=== PATIENT | male | born 1975 ===

== ENCOUNTER 2020-12-23 18:33 | Emergency (ER) | payer OTHER ==
--- NOTE | 2020-12-23 18:59 | EDM.PDOC ---
ED HPI GENERAL MEDICAL PROBLEM - General Chief Complaint: Skin Complaint Stated Complaint: LEFT THUMB INJURY Time Seen by Provider: 12/23/20 18:35 - History of Present Illness INITIAL COMMENTS - FREE TEXT/NARRATIVE: History of present illness: [] Patient has a hangnail or ingrown nail on the thumb of the left hand for 2 to 3 days and today it swollen red and painful. He asked for antibiotics but actually has a paronychia and I told him would be better to if he had one of the other to have drainage. Review of systems: As per history of present illness and below otherwise all systems reviewed and negative. Past medical history: As per history of present illness and as reviewed below otherwise noncontributory. Surgical history: As per history of present illness and as reviewed below otherwise noncontributory. Social history: No reported history of drug or alcohol abuse. Family history: As per history of present illness and as reviewed below otherwise noncontributory. Physical exam: Constitutional - well developed, well-nourished and in no acute distress HEENT - normocephalic, no evidence of trauma - external nose and mouth normal - no mass in neck and no JVD - mucosae moist EYES - full EOM, PERRL, no icterus - no evidence of inflammation, injection, or drainage Respiratory - no respiratory distress, equal bilateral expansion Musculoskeletal swelling and tenderness of the distal segment of the thumb on the dorsal side only. No gross deformity of long bones or joints - no tenderness, swelling or edema Neurologic - Alert and oriented times four - CN II-XII grossly intact - motor sensory and coordination symmetrically normal Psychiatric - appropriate mood and affect with normal thought content Hematologic - No petechiae or purpura - mucosa appropriate color and sclera not pale - normal nail bed color and refill Integument -paronychia left thumb no rash or evidence of trauma - normal turgor Diagnostics: [] Therapeutics: [] Impression: [] Plan: [] Definitive disposition and diagnosis as appropriate pending reevaluation and review of above. Left thumb Pain Score (Numeric/FACES): 6 - Related Data Allergies Allergy/AdvReac Type Severity Reaction Status Date / Time No Known Allergies Allergy Verified 12/23/20 18:44 Home Meds: Home Meds Acetaminophen/oxyCODONE [Percocet 325-5 MG] 1 - 2 tab PO Q4HR PRN #14 tab 07/15/21 [Rx] cephALEXin [Cephalexin] 500 mg PO BID #10 capsule 12/23/20 [Rx] Past Medical History - Past Health History Medical/Surgical History: Denies Medical/Surgical History - Infectious Disease History Infectious Disease History: Reports: None Social & Family History - Family History Family Medical History: No Pertinent Family History - Tobacco Use Tobacco Use Status *Q: Never Tobacco User - Recreational Drug Use Recreational Drug Use: No ED ROS GENERAL - Review of Systems Review Of Systems: Comprehensive ROS is negative, except as noted in HPI. ED EXAM, SKIN/RASH Exam: See Below Text/Narrative:: My physical exam is in the HPI ED SKIN PROCEDURES - I&D Site: Left thumb Skin Prep: Providone-Iodine (Betadine) Local Anesthesia: Lidocaine: 1% Plain Local Anesthetic Volume: 5cc (Digital block done after Betadine prep) Area Incised With: Scissors Drainage: Purulent Probed to Break Up Loculations: Yes Packed With: 1/4 in. Iodoform Progress/Comments: Paronychia broken up after eponychium elevated over nail on purulent material exchange iodoform packing placed over the nail to the nail base . Course - Vital Signs Last Recorded V/S: Last Vital Signs Temp 35.9 C L 12/23/20 18:44 Pulse 76 12/23/20 18:44 Resp 17 12/23/20 18:44 BP 124/102 H 12/23/20 18:44 Pulse Ox 98 12/23/20 18:44 Departure - Departure Time of Disposition: 19:10 Disposition: Home, Self-Care 01 Condition: Good Clinical Impression: Paronychia - Discharge Information Instructions: Paronychia Referrals: Anil Pinzon MD [Primary Care Provider] - Additional Instructions: [facility] [address] [place] [address] [id number] [address] [address] The following information is given to patients seen in the emergency department who are being discharged to home. This information is to outline your options for follow-up care. We provide all patients seen in our emergency department with a follow-up referral. The need for follow-up, as well as the timing and circumstances, are variable depending upon the specifics of your emergency department visit. If you don't have a primary care physician on staff, we will provide you with a referral. We always advise you to contact your personal physician following an emergency department visit to inform them of the circumstance of the visit and for follow-up with them and/or the need for any referrals to a consulting specialist. The emergency department will also refer you to a specialist when appropriate. This referral assures that you have the opportunity for follow-up care with a specialist. All of these measure are taken in an effort to provide you with optimal care, which includes your follow-up. Under all circumstances we always encourage you to contact your private physician who remains a resource for coordinating your care. When calling for follow-up care, please make the office aware that this follow-up is from your recent emergency room visit. If for any reason you are refused follow-up, please contact the [facility] Emergency Department at and asked to speak to the emergency department charge nurse. Pull the packing out in 2 days and start hot soaks and keep the cuticle elevated over the nail with manicure stick. Sepsis Event Note (ED) - Evaluation Sepsis Screening Result: No Definite Risk - Focused Exam Vital Signs: Vital Signs Temp Pulse Resp BP Pulse Ox 12/23/20 18:44 35.9 C L 76 17 124/102 H 98
== END 2020-12-23 19:07 | disposition home or self-care (01) ==
LOC: MW.ED 18:33
DX: L03.012 Cellulitis of left finger (principal)
CPT/HCPCS: 64450; 99283-25

== ENCOUNTER 2021-03-04 19:21 | Emergency (ER) | payer OTHER ==
[2021-03-04] MEDS ORDERED: Lidocaine 5% 700 MG Patch TOP ONE (19:29)
[2021-03-04] MEDS ORDERED: Ketorolac 30 MG/ML SDV IM ONE (19:29)
--- NOTE | 2021-03-04 19:32 | EDM.PDOC ---
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 States he had pain this morning past in his back. Patient is able to ambulate denies any urinary incontinence no saddle anesthesia. Pain is localized to his left lower back. Does not radiate he made worse with lifting his leg. Few minutes ago has not any medication for this. Onset: Today Duration: Hour(s): Location: Reports: Back Quality: Reports: Ache Severity: Moderate Improves with: Reports: None Worsens with: Reports: Movement Associated Symptoms: Reports: No Other Symptoms left side of back Pain Score (Numeric/FACES): 8 - Related Data Allergies Allergy/AdvReac Type Severity Reaction Status Date / Time No Known Allergies Allergy Verified 03/04/21 19:28 Home Meds: Home Meds . [No Known Home Meds] 03/04/21 [History] Past Medical History - Past Health History Medical/Surgical History: Denies Medical/Surgical History - Infectious Disease History Infectious Disease History: Reports: None Social & Family History - Family History Family Medical History: No Pertinent Family History ED ROS GENERAL - Review of Systems Review Of Systems: See Below Constitutional: Reports: No Symptoms HEENT: Reports: No Symptoms Respiratory: Reports: No Symptoms Cardiovascular: Reports: No Symptoms Endocrine: Reports: No Symptoms GI/Abdominal: Reports: No Symptoms : Reports: No Symptoms Musculoskeletal: Reports: Back Pain Skin: Reports: No Symptoms Neurological: Reports: No Symptoms Psychiatric: Reports: No Symptoms Hematologic/Lymphatic: Reports: No Symptoms Immunologic: Reports: No Symptoms ED EXAM,LOWER BACK PAIN/INJURY - Physical Exam Exam: See Below Exam Limited By: No Limitations General Appearance: Alert, WD/WN, No Apparent Distress Throat/Mouth: Normal Inspection Respiratory/Chest: No Respiratory Distress Back Exam: Normal Inspection, Full Range of Motion, Paraspinal Tenderness. No: CVA Tenderness (L), CVA Tenderness (R), Vertebral Tenderness Extremities: Normal Inspection, Normal Range of Motion, Non-Tender Neurological: Alert, Normal Mood/Affect, Oriented x 3 Course - Vital Signs Last Recorded V/S: Last Vital Signs Temp 98.1 F 03/04/21 19:26 Pulse 104 H 03/04/21 19:26 Resp 18 03/04/21 19:26 BP 168/115 H 03/04/21 19:26 Pulse Ox 98 03/04/21 19:26 - Orders/Labs/Meds Meds: Medications Discontinued Medications Generic Name Dose Route Start Last Admin Trade Name Shad PRN Reason Stop Dose Admin Ketorolac Tromethamine 30 mg 03/04/21 19:29 03/04/21 19:33 Ketorolac 30 Mg/Ml Sdv IM 03/04/21 19:30 30 mg ONETIME ONE Administration Lidocaine 700 mg 03/04/21 19:29 03/04/21 19:33 Lidocaine 5% 700 Mg Patch TOP 03/04/21 19:30 700 mg ONETIME ONE Administration - Re-Assessments/Exams Free Text/Narrative Re-Assessment/Exam: 03/04/21 20:13 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 Departure - Departure Time of Disposition: 20:13 Disposition: Home, Self-Care 01 Condition: Good Clinical Impression: Lumbago - Discharge Information *PRESCRIPTION DRUG MONITORING PROGRAM REVIEWED*: Not Applicable *COPY OF PRESCRIPTION DRUG MONITORING REPORT IN PATIENT MEEK: Not Applicable Instructions: Chronic Back Pain, [id number] Forms: ED Department Discharge Additional Instructions: The following information is given to patients seen in the emergency department who are being discharged to home. This information is to outline your options for follow-up care. We provide all patients seen in our emergency department with a follow-up referral. The need for follow-up, as well as the timing and circumstances, are variable depending upon the specifics of your emergency department visit. If you don't have a primary care physician on staff, we will provide you with a referral. We always advise you to contact your personal physician following an emergency department visit to inform them of the circumstance of the visit and for follow-up with them and/or the need for any referrals to a consulting specialist. The emergency department will also refer you to a specialist when appropriate. This referral assures that you have the opportunity for follow-up care with a specialist. All of these measure are taken in an effort to provide you with optimal care, which includes your follow-up. Under all circumstances we always encourage you to contact your private physician who remains a resource for coordinating your care. When calling for follow-up care, please make the office aware that this follow-up is from your recent emergency room visit. If for any reason you are refused follow-up, please contact the [facility] Emergency Department at and asked to speak to the emergency department charge nurse. Please follow up with your primary care physician. If you do not have a primary care physician, see below: [facility] [address] [place] [id number] [facility] [address] [place] [address] He was seen today for an injury to your back. We provided pain meds to help assist with this. He said he had a similar pain for the past. We recommend you try to stay active take medicine as needed and if you have any other concerns on symptom please removed to the ED. 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 We will provide pain control. Patient denies pain left paraspinal muscles. No other injuries. Patient has no abdominal pain or any pulsatile masses abdomen
== END 2021-03-04 20:23 | disposition home or self-care (01) ==
LOC: MW.ED 19:21
DX: M54.5 Low back pain (principal)
CPT/HCPCS: 96372; 99283; A9270; J1885